=== PATIENT | female | born 1960 | race Caucasian/White ===

== ENCOUNTER 2016-09-07 12:01 | Inpatient (IN) | payer BC ==
[~2016-09-07] VITALS: Ht 170.2 cm; Wt 113.4 kg
[2016-09-07] MEDS ORDERED: SODIUM CHLORIDE 0.9% 1,000 ML IV ONE (12:29)
[2016-09-07 13:31] LABS: Basophils # (auto) 0 uL; Basophils % (auto) 0.1 % (0.0-2.0); CONDITION Y; Eosinophils # (auto) 0.1 uL; Eosinophils % (auto) 0.4 % (0.0-7.0); Hematocrit 44.7 % (36.0-46.0); Hemoglobin 15.3 g/dL (12.2-16.2); Lymphocytes # (auto) 1.3 uL; Lymphocytes % (auto) 8.2 % (10.0-50.0); Mean Corpuscular Hemoglobin 29.8 pg (28.0-32.0); Mean Corpuscular Hgb Conc. 34.3 g/dL (32.0-36.0); Mean Corpuscular Volume 87.1 fL (80.0-100.0); Mean Platelet Volume 9.9 fL (7.4-10.4); Monocytes # (auto) 0.7 uL; Monocytes % (auto) 4.2 % (0.0-12.0); Neutrophils # (auto) 13.6 uL; Neutrophils % (auto) 87.1 % (37.0-80.0); Platelet Count (auto) 371 10^3/uL (140-450); Red Cell Distribution Width 14.3 % (11.6-16.0); SUSPECT SEE PRINTOUT; White Blood Cell 15.7 10^3/uL (4.4-10.8)
[2016-09-07] MEDS ORDERED: FUROSEMIDE 40 MG/4 ML VIAL IV ONE (14:00)
[2016-09-07] MEDS ORDERED: cefTRIAXone 1GM/50ML D5W 50 ML IV ONE ×3 (14:00→15:30)
[2016-09-07 14:35] LABS: Platelet Estimate Adequate
[2016-09-07 14:36] LABS: Giant Platelets Few
[2016-09-07 14:36] LABS: Lactic Acid w/Reflex 2.4 mmol/L (0.4-2.0)
[2016-09-07 14:46] LABS: Magnesium 2.4 mg/dL (1.6-2.6); REFLEX LACTIC ACID YES OR NO YES
[2016-09-07 14:50] LABS: Albumin 3.2 g/dL (3.4-5.0); BUN/Creatinine Ratio 15.6; Bilirubin, Total 0.8 mg/dL (0.2-1.0); Calcium 9.3 mg/dL (8.5-10.1); Potassium 3.4 mmol/L (3.5-5.1); Total Protein 7.5 g/dL (6.4-8.2)
[2016-09-07] MEDS ORDERED: NITROGLYCERIN 0.4 MG SL TAB SL PRN ×2 (15:00→16:45)
[2016-09-07] MEDS ORDERED: MORPHINE SULFATE 4 MG/ML SYRG IV PRN ×2 (15:00→19:08)
[2016-09-07] MEDS ORDERED: METOPROLOL TARTRATE 1MG/1ML-5ML VIAL IV PRN (15:00)
[2016-09-07] MEDS ORDERED: D5W/SOD CHLO 0.9% 1,000 ML IV ONE (15:00)
[2016-09-07 15:07] LABS: Partial Thromboplastin Time 26.1 sec (22.64-33.71); Prothrombin Time 10.9 sec (9.37-12.3)
[2016-09-07 15:10] LABS: Cholesterol 249 mg/dL (< 200); HDL Cholesterol 41 mg/dL (40-59); LDL Cholesterol 189 mg/dL (< 100); Triglycerides 107 mg/dL (< 150)
[2016-09-07] MEDS ORDERED: DEXTROSE (50%) 50ML SYRG IV PRN ×2 (15:15→16:45)
[2016-09-07 15:46] LABS: Urine Bilirubin Negative (Negative); Urine Blood Negative /uL (Negative); Urine Color Yellow (Yellow); Urine Glucose Normal (Normal); Urine Hyaline Cast FEW /lpf (0 - 2); Urine Ketone Negative (Negative); Urine Mucus FEW (None Seen); Urine Nitrite Negative (Negative); Urine RBC <1 /hpf (0 - 4); Urine Squamous Epithelial Cell FEW /hpf (<5); Urine Urobilinogen Normal (Negative); Urine pH 5.5 (5.0-8.0)
[2016-09-07] MEDS ORDERED: IOHEXOL 350 MG/ML 100ML IJ ONE (16:30)
[2016-09-07] MEDS ORDERED: SODIUM CHLORIDE 0.9% 1,000 ML IV SCH (16:31)
[2016-09-07] MEDS ORDERED: ENOXAPARIN SOD 120 MG/0.8 ML SYRINGE SC ONE (16:45)
[2016-09-07] MEDS ORDERED: ALBUTEROL SULF 2.5 MG/0.5ML(0.5%) NEB SOLN NEB PRN (16:45)
[2016-09-07] MEDS ORDERED: LACTULOSE 20Gm/30ML SOLN PO PRN (16:45)
[2016-09-07] MEDS ORDERED: MORPHINE SULF INJ 2 MG/ML SYRINGE 1ML IV PRN (16:45)
[2016-09-07] MEDS ORDERED: PROMETHAZINE HCL 25 MG/ML 1ML IV PRN (16:45)
[2016-09-07] MEDS ORDERED: LORazepam 2MG/ML-1ML VIAL IV PRN ×2 (16:45)
[2016-09-07] MEDS ORDERED: HYDROcodone-ACET 5/325MG TAB PO PRN (16:45)
[2016-09-07] MEDS ORDERED: InsuLIN REG 1unit/0.01ml Soln (100units/ml) SC SCH (17:00)
[2016-09-07] MEDS ORDERED: ACCU-CHEK COMFORT CURVE STRIP VI SCH (17:00)
[2016-09-07] MEDS ORDERED: LACTULOSE 20Gm/30ML SOLN NG PRN (17:00)
[2016-09-07] MEDS: IPRATROPIUM BROM 0.5 MG/2.5ML INH SOL NEB SCH (18:00)
[2016-09-07] MEDS ORDERED: ONDANSETRON HCL 4 MG/2 ML VIAL IV ONE (18:00)
[2016-09-07] MEDS: ALBUTEROL SULF 2.5 MG/0.5ML(0.5%) NEB SOLN NEB SCH (18:00)
[2016-09-07] MEDS: ACCU-CHEK COMFORT CURVE STRIP VI SCH (18:10)
[2016-09-07] MEDS: InsuLIN REG 1unit/0.01ml Soln (100units/ml) SC SCH (18:13)
[2016-09-07 18:50] VITALS: BP 134/78
[2016-09-07] MEDS: POTASSIUM CHL 20 Meq TABLET PO SCH (19:08)
[2016-09-07 19:28] LABS: B-Type Natriuretic Peptide 177.01 pg/mL (0-100)
[2016-09-07 19:36] LABS: Temperature: 23.3 C (20.0-25.0)
[2016-09-07] MEDS: DIGOXIN (250MCG/ML) 2 ML AMPULE IV SCH (19:58)
[2016-09-07] MEDS ORDERED: POTASSIUM CHL 20MEQ/100ML 100 ML IV ONE (21:30)
[2016-09-07] MEDS ORDERED: LABETALOL HCL 5 MG/ML 4ML SYRINGE IV PRN (22:00)
[2016-09-07] MEDS ORDERED: ATORVASTATIN 20 MG TAB NG SCH ×2 (22:00)
[2016-09-07] MEDS: CARVEDILOL 3.125 MG TAB PO SCH (22:00)
[2016-09-07] MEDS ORDERED: ENOXAPARIN SOD 100 MG/1 ML SYRINGE SC ONE (22:00)
[2016-09-07 22:25] VITALS: BP 121/73
[2016-09-08] MEDS: DIGOXIN (250MCG/ML) 2 ML AMPULE IV SCH ×2 (01:30→07:55)
[2016-09-08] MEDS ORDERED: ENOXAPARIN SOD 120 MG/0.8 ML SYRINGE SC SCH (05:00)
[2016-09-08] MEDS: InsuLIN REG 1unit/0.01ml Soln (100units/ml) SC SCH ×3 (05:33→11:54)
[2016-09-08] MEDS: ACCU-CHEK COMFORT CURVE STRIP VI SCH ×3 (05:33→11:54)
[2016-09-08 06:05] LABS: Basophils # (auto) 0.1 uL; Basophils % (auto) 0.5 % (0.0-2.0); CONDITION Y; Eosinophils # (auto) 0.1 uL; Eosinophils % (auto) 0.9 % (0.0-7.0); Hematocrit 41.2 % (36.0-46.0); Hemoglobin 13.6 g/dL (12.2-16.2); Lymphocytes # (auto) 1.5 uL; Lymphocytes % (auto) 12.8 % (10.0-50.0); Mean Corpuscular Hemoglobin 29.2 pg (28.0-32.0); Mean Corpuscular Volume 88.4 fL (80.0-100.0); Mean Platelet Volume 9.2 fL (7.4-10.4); Monocytes # (auto) 0.8 uL; Monocytes % (auto) 6.7 % (0.0-12.0); Neutrophils # (auto) 9.4 uL; Neutrophils % (auto) 79.1 % (37.0-80.0); Platelet Count (auto) 386 10^3/uL (140-450); Red Cell Distribution Width 14.7 % (11.6-16.0); White Blood Cell 11.9 10^3/uL (4.4-10.8)
[2016-09-08 06:26] LABS: Albumin 2.8 g/dL (3.4-5.0); BUN/Creatinine Ratio 12.8; Bilirubin, Total 0.8 mg/dL (0.2-1.0); Calcium 9.1 mg/dL (8.5-10.1); Potassium 3.9 mmol/L (3.5-5.1); Total Protein 6.5 g/dL (6.4-8.2)
[2016-09-08] MEDS: IPRATROPIUM BROM 0.5 MG/2.5ML INH SOL NEB SCH ×3 (07:01→12:00)
[2016-09-08] MEDS: ALBUTEROL SULF 2.5 MG/0.5ML(0.5%) NEB SOLN NEB SCH ×3 (07:02→12:00)
[2016-09-08 07:32] LABS: B-Type Natriuretic Peptide 222.83 pg/mL (0-100)
[2016-09-08] MEDS ORDERED: cefTRIAXone 1GM/50ML D5W 50 ML IV SCH ×2 (09:00→10:00)
[2016-09-08 09:18] LABS: Allen Test Modified; Base Excess 0.7 mmol/L (-2.0-2.0); Blood 02Sat 93.4 % (96-100); Blood COHb 0.6 % (0.5-1.5); Blood MetHb 0.3 % (0.0-1.5); HCO3 25.1 mmol/L (22-26.0); HHb 6.5 % (0.0-5.0); MODE MED NEB; O2Hb 92.6 % (94.0-97.0); PCO2 39.6 mmHg (35.0-45.0); PCO2(T) 39.6 mmHg (35.0-45.0); PO2 69.9 mmHg (80.0-100.0); PO2(T) 69.9 mmHg (80.0-100.0); Room 1015-ERT; Sample Type Arterial
[2016-09-08] MEDS: CARVEDILOL 3.125 MG TAB PO SCH (09:38)
[2016-09-08] MEDS ORDERED: PANTOPRAZOLE SODIUM 40 MG/10 ML VIAL IV SCH (10:00)
[2016-09-08] MEDS: POTASSIUM CHL 20 Meq TABLET PO SCH (10:00)
[2016-09-08] MEDS ORDERED: AZITHROMYCIN 500MG/D5W 250ML 250 ML IV SCH (10:00)
[2016-09-08] MEDS ORDERED: DIGOXIN (250MCG/ML) 2 ML AMPULE IV ONE (10:00)
[2016-09-08] MEDS ORDERED: NITROGLYCERIN 0.2MG/HR TOPICAL PATCH TD SCH (10:00)
[2016-09-08] MEDS ORDERED: ASPirin 81 mg TAB NG SCH (10:00)
[2016-09-08] MEDS ORDERED: FUROSEMIDE 40 MG/4 ML VIAL IV SCH (10:00)
[2016-09-08] MEDS ORDERED: ENALAPRIL MALEATE 2.5 MG TAB PO SCH (10:00)
[2016-09-08] MEDS ORDERED: DIGOXIN (250MCG/ML) 2 ML AMPULE IV SCH (10:00)
[2016-09-08] MEDS ORDERED: ENOXAPARIN SOD 40 MG/0.4 ML SYRINGE SC SCH (10:00)
[2016-09-08] MEDS ORDERED: ASPirin 81 mg TAB PO SCH (10:00)
[2016-09-08] MEDS ORDERED: POTASSIUM CHL 10% (20 MEQ/15ML) ORAL SOLN ONE (10:02)
[2016-09-08 16:30] VITALS: BP 108/57
[2016-09-08] MEDS ORDERED: LABETALOL HCL 5 MG/ML 4ML SYRINGE IV PRN (19:30)
== END 2016-09-08 21:00 | disposition short-term general hospital (02) | DRG 64 ==
LOC: ER 12:01 → TELE 12:02
PROVIDERS: ADMIT Hospitalist; ATTEND Family Medicine
PROC: 5A09357 Assistance with Respiratory Ventilation, Less than 24 Consecutive Hours, Continuous Positive Airway Pressure (ICD-10-PCS; principal; 2016-09-07)
DX: I63.9 Cerebral infarction, unspecified (principal); G93.41 Metabolic encephalopathy; J18.9 Pneumonia, unspecified organism; I50.9 Heart failure, unspecified; I11.0 Hypertensive heart disease with heart failure; R47.01 Aphasia; E66.01 Morbid (severe) obesity due to excess calories; E87.6 Hypokalemia; R73.9 Hyperglycemia, unspecified; I48.2 Chronic atrial fibrillation; Z79.899 Other long term (current) drug therapy; Z79.82 Long term (current) use of aspirin; Z82.3 Family history of stroke; Z68.39 Body mass index [BMI] 39.0-39.9, adult
CPT/HCPCS: 36415; 36600; 51702; 70450; 71010; 71275; 80053; 80061; 80307; 80320; 81001; 82550; 82607; 82746; 82805; 82962; 83036; 83605; 83735; 83880; 84443; 84484; 85025; 85379; 85610; 85652; 85730; 87040; 87086; 92610; 93005; 93886; 93970; 94640; 94660; 95819; 96361; 96365; 96372; C9113; J0696; J1815; J3480